=== PATIENT | male | born 1945 | race Caucasian/White ===

== ENCOUNTER 2020-03-23 15:45 | Emergency (ER) | payer MEDICARE, OTHER ==
[~2020-03-23] VITALS: Ht 172.7 cm; Wt 86.4 kg
[2020-03-23 16:18] LABS: BASOPHILS % (AUTO) 1 % (0-1); EOSINOPHILS % (AUTO) 0 % (1-7); LYMPHOCYTES % (AUTO) 25 % (22-44); MEAN CORPUSCULAR HEMOGLOBIN 31.8 pg (27.5-34.5); MEAN CORPUSCULAR HGB CONC 34.4 g/dL (33.2-36.2); MONOCYTES % (AUTO) 17 % (2-9); NEUTROPHILS % (AUTO) 57 % (42-75); PLATELET COUNT 155 x10^3/uL (130-400); RED BLOOD COUNT 5.61 x10^6/uL (4.38-5.82); RED CELL DISTRIBUTION WIDTH 12.8 % (9.4-14.8)
[2020-03-23 16:20] LABS: MD NO
[2020-03-23 16:27] LABS: ALANINE AMINOTRANSFERASE 49 U/L (12-78); ALBUMIN 4.1 g/dL (3.4-5.0); ANION GAP 6 mmol/L (5-15); CALCIUM 9.4 mg/dL (8.5-10.1); CHLORIDE 103 mmol/L (98-107); CREATININE 1.41 mg/dL (0.7-1.3)
[2020-03-23 16:30] LABS: ALKALINE PHOSPHATASE 81 U/L (45-117); BILIRUBIN,TOTAL 0.6 mg/dL (0.2-1.0); TOTAL PROTEIN 8.3 g/dL (6.4-8.2)
[2020-03-23 17:01] LABS: MICROSCOPIC INDICATED
--- NOTE | 2020-03-23 18:55 | NUR ---
MEDICAL TECHNICIAN ASSISTANT: PT TO ROOM FROM LOBBY
--- NOTE | 2020-03-23 19:15 | NUR ---
LATE ENTRY D/T PT CARE: PT CAME INTO ED TODAY FOR ISSUES. STATES HE HAS BEEN PASSING SIGNIFICANT GOLF BALL SIZED CLOTS. PT DENIES PAIN AT THIS TIME, DENIES RETENTION, NAD, RESTING ON GURNEY, PROVIDED WARM BLANKETS FOR COMFORT, PLACED ON SPO2/BP MONITORING, WCTM.
[2020-03-23] MEDS ORDERED: PYRI200T5 PO (19:28)
[2020-03-23] MEDS ORDERED: LISINOPRIL PO (19:28)
[2020-03-23] MEDS ORDERED: ROSU20TA2 PO (19:41)
[2020-03-23] MEDS ORDERED: GABA300C PO (19:41)
[2020-03-23] MEDS ORDERED: LEVO75TA5 PO (19:41)
[2020-03-23] MEDS ORDERED: LISI-170 PO (19:41)
[2020-03-23] MEDS ORDERED: ASPI-515 PO (19:42)
--- NOTE | 2020-03-23 21:28 | NUR ---
BLADDER IRRIGATED, RUNNING CLEAR AT THIS TIME, NO CLOTS OR BLOOD NOTED. PT TOELRATED RUIZ WELL, NAD, RESTING COMFORTABLY, VSS, WCTM.
[2020-03-23 22:24] VITALS: BP 135/77
--- NOTE | 2020-03-23 22:25 | NUR ---
Patient given discharge instructions and they have confirmed that they understand the instructions. Patient ambulatory with steady gait. NAD, DENIES ADDITIONAL QUESTIONS OR NEEDS, STATES HE WILL FOLLOW UP WITH UROLOG FOR CATH REMOVAL, PROVIDED CATH SUPPLIES WITH LEG BAG AND CAPS.
== END 2020-03-23 22:40 | disposition home or self-care (01) ==
LOC: ED 16:15
DX: U07.1 COVID-19 (principal); R31.0 Gross hematuria; J02.9 Acute pharyngitis, unspecified; R05 Cough; M54.5 Low back pain
CPT/HCPCS: 36415; 71045; 80053; 81001; 85025; 87086; 87635; 99284

== ENCOUNTER 2020-03-25 08:14 | Emergency (ER) | payer MEDICARE, OTHER ==
[~2020-03-25] VITALS: Ht 172.7 cm; Wt 87.2 kg
[~2020-03-25 08:14] MED LIST: ASPI-515 PO; GABA300C PO; LEVO75TA5 PO; LISI-170 PO; LISINOPRIL PO; PYRI200T5 PO; ROSU20TA2 PO
--- NOTE | 2020-03-25 08:55 | NUR ---
VP RESPIRATORY: PT TO ROOM FROM LOBBY VIA W/C
--- NOTE | 2020-03-25 09:00 | NUR ---
REPORT TO BANDAR CORONADO
[2020-03-25] MEDS ORDERED: LIDOCAINE-MPF 2% ,5ML ONE (09:17)
[2020-03-25] MEDS ORDERED: HYDROmorphone 1 MG/ML, 1ML INJ ONE (09:17)
[2020-03-25] MEDS ORDERED: HYDROmorphone 1 MG/ML, 1ML INJ IM ONE (09:30)
--- NOTE | 2020-03-25 09:35 | NUR ---
BLADDER SCAN OF 40-50ML 3 WAY 21F RUIZ FLUSHED WITH STERILE SALINE. NO RESISTANCE. WHAT WAS FLUSHED IN DRAINED IMMEDIATELY ML FOR ML HOWEVER PATIENT AND PROVIDER DISCUSSED POC. THEY BOTH WOULD LIKE CATHETER REMOVED, WILL ATTEMPT TO VOID NATURALLY IF HE IS UNABLE TO DO SO TO REPLACE WITH NEW CATHETER OR SUPRAPUBIC IF NECCESSARY
[2020-03-25 09:56] LABS: BASOPHILS % (AUTO) 1 % (0-1); EOSINOPHILS % (AUTO) 0 % (1-7); LYMPHOCYTES % (AUTO) 15 % (22-44); MD NO; MEAN CORPUSCULAR HEMOGLOBIN 31.4 pg (27.5-34.5); MEAN CORPUSCULAR HGB CONC 34.6 g/dL (33.2-36.2); MEAN PLATELET VOLUME 8.1 fL (7.4-10.4); MONOCYTES % (AUTO) 12 % (2-9); NEUTROPHILS % (AUTO) 72 % (42-75); PLATELET COUNT 117 x10^3/uL (130-400); RED BLOOD COUNT 5.29 x10^6/uL (4.38-5.82); RED CELL DISTRIBUTION WIDTH 12.8 % (9.4-14.8)
[2020-03-25] MEDS ORDERED: SODIUM CHLORIDE 0.9% 1,000ML IVBOLUS ONE (10:00)
[2020-03-25] MEDS ORDERED: FILTER 0.22 MICRON IV ONE (10:00)
[2020-03-25] MEDS ORDERED: BAMLANIVIMAB 700 MG in SODIUM CHLORIDE 0.9% 180 ML IVPB ONE (10:00)
[2020-03-25 10:04] LABS: ALBUMIN 3.9 g/dL (3.4-5.0); ANION GAP 6 mmol/L (5-15); CHLORIDE 105 mmol/L (98-107)
[2020-03-25 10:08] LABS: ALANINE AMINOTRANSFERASE 44 U/L (12-78); ALKALINE PHOSPHATASE 72 U/L (45-117); BILIRUBIN,TOTAL 0.7 mg/dL (0.2-1.0); CREATININE 1.19 mg/dL (0.7-1.3); TOTAL PROTEIN 7.8 g/dL (6.4-8.2)
[2020-03-25 11:31] LABS: MICROSCOPIC AUTO
--- NOTE | 2020-03-25 12:23 | NUR ---
PT RESTING GIVING BAM VIA IV...
[2020-03-25 13:03] VITALS: BP 128/68
== END 2020-03-25 14:22 | disposition home or self-care (01) ==
LOC: ED 09:11
DX: U07.1 COVID-19 (principal); N30.00 Acute cystitis without hematuria; R33.9 Retention of urine, unspecified; R06.02 Shortness of breath; R50.9 Fever, unspecified; R05 Cough; I10 Essential (primary) hypertension; E03.9 Hypothyroidism, unspecified; E78.5 Hyperlipidemia, unspecified; Z85.46 Personal history of malignant neoplasm of prostate
CPT/HCPCS: 36415; 51700; 71045; 80053; 81001; 85025; 87077; 87086; 96360; 96372; 99284; J1170; J7030; J7050; M0239; Q0239; 87186